=== PATIENT | male | born 1950 | race American Indian/Alaskan Native ===

== ENCOUNTER 2020-10-23 08:58 | Outpatient (CLI) | payer MEDICARE ==
--- NOTE | 2020-10-23 12:50 | Fluoroscopy Report ---
MODIFIED BARIUM SWALLOW INDICATION: DYSPHAGIA TECHNIQUE: Swallowing was evaluated in the lateral position under direct fluoroscopy. FINDINGS: The patient was evaluated with thin liquids, puree and semisolid consistencies. There was mild delay in oral transit with all 3 consistencies. No evidence for penetration or aspirat ion. IMPRESSION: No evidence for penetration or aspiration. Fluoroscopic time: 1.7 minutes Number of fluoroscopic images: 2 Signer Name: Wenceslao Todd Jr, MD Signed: 10/23/2020 12:46 PM Workstation Name: [id number]
== END 2020-10-23 08:59 | disposition home or self-care (01) ==
LOC: PT 08:58
PROVIDERS: ATTEND Internal Medicine
DX: R13.10 Dysphagia, unspecified (principal)
CPT/HCPCS: 74230